=== PATIENT | female | born 1995 | race Caucasian/White ===

== ENCOUNTER → 2023-11-12 10:18 | Outpatient (REF) | payer OTHER, SELFPAY | LOC: PNTC 10:18 | PROVIDERS: ATTENDING PHYSICIAN Obstetrics & Gynecology | DX: O03.80 Unspecified complication following complete or unspecified spontaneous abortion (principal) | CPT/HCPCS: 76801 ==

== ENCOUNTER → 2023-11-23 11:12 | Outpatient (REF) | payer OTHER, SELFPAY ==
--- NOTE | 2023-11-23 17:08 | W.PN.UPDATE ---
Update Note
Progress Note Update
Pt seen by me in L&D (not registered) for Rhogam injection due to first trimester spotting. RH neg. Rhogam given IM right buttocks.
Lot #[id number] Exp 03/17/2024.
== END ==
LOC: RAD 11:12
PROVIDERS: ATTENDING PHYSICIAN Obstetrics & Gynecology
DX: O26.851 Spotting complicating pregnancy, first trimester (principal); Z34.92 Encounter for supervision of normal pregnancy, unspecified, second trimester
CPT/HCPCS: 36415; 76801; 76817; 86850; 86900; 86901; J2790

== ENCOUNTER → 2023-12-03 08:34 | Outpatient (REF) | payer OTHER, SELFPAY | LOC: PNTC 08:34 | PROVIDERS: ATTENDING PHYSICIAN Obstetrics & Gynecology | DX: Z36.0 Encounter for antenatal screening for chromosomal anomalies (principal); Z36.82 Encounter for antenatal screening for nuchal translucency | CPT/HCPCS: 76801; 76813 ==

== ENCOUNTER → 2023-12-20 10:28 | Outpatient (REF) | payer OTHER, SELFPAY | LOC: PNTC 10:28 | PROVIDERS: ATTENDING PHYSICIAN Obstetrics & Gynecology | DX: O99.210 Obesity complicating pregnancy, unspecified trimester (principal) | CPT/HCPCS: 76805 ==

== ENCOUNTER → 2024-01-22 09:35 | Outpatient (REF) | payer OTHER, SELFPAY | LOC: PNTC 09:35 | PROVIDERS: ATTENDING PHYSICIAN Obstetrics & Gynecology | DX: O99.210 Obesity complicating pregnancy, unspecified trimester (principal) | CPT/HCPCS: 76811 ==

== ENCOUNTER 2024-02-22 10:42 | Observation (INO) | payer OTHER, SELFPAY ==
[2024-02-22 10:54] VITALS: BP 101/69; BMI 32.9
== END 2024-02-22 11:20 | disposition home or self-care (01) ==
LOC: LDRP 10:42
PROVIDERS: ADMITTING PHYSICIAN Obstetrics & Gynecology; FAMILY PHYSICIAN Family Medicine
DX: O36.8120 Decreased fetal movements, second trimester, not applicable or unspecified (principal); Z3A.24 24 weeks gestation of pregnancy
CPT/HCPCS: G0378

== ENCOUNTER → 2024-03-03 10:29 | Outpatient (REF) | payer OTHER, SELFPAY | LOC: PNTC 10:29 | PROVIDERS: ATTENDING PHYSICIAN Obstetrics & Gynecology | DX: O99.320 Drug use complicating pregnancy, unspecified trimester (principal); O99.210 Obesity complicating pregnancy, unspecified trimester | CPT/HCPCS: 76816 ==

== ENCOUNTER → 2024-04-17 10:41 | Outpatient (REF) | payer OTHER, SELFPAY | LOC: PNTC 10:41 | PROVIDERS: ATTENDING PHYSICIAN Obstetrics & Gynecology | DX: O99.210 Obesity complicating pregnancy, unspecified trimester (principal); O99.320 Drug use complicating pregnancy, unspecified trimester | CPT/HCPCS: 76816 ==

== ENCOUNTER 2024-06-04 12:15 | Inpatient (IN) | payer OTHER, SELFPAY ==
[2024-06-04] MEDS: LR 1000 IV ×3 (12:15→22:37)
[2024-06-04 12:17] VITALS: BP 130/62; BMI 33.4
[2024-06-04 12:57] LABS: Hematocrit 35.1 % (37.0-47.0); Hemoglobin 12.7 g/dL (12.0-16.0); Mean Corp Hgb Conc. 36.2 g/dL (33.0-37.0); Mean Corpuscular Hgb 33.5 pg (27.0-31.0); Mean Corpuscular Volume 92.6 fL (81.0-99.0); Mean Platelet Volume 10.6 fL (7.4-10.4); Platelet Count 225 10^3/uL (130-400); Red Blood Cell Count 3.79 10^6/uL (4.20-5.40); Red Cell Dist. Width 13.2 % (11.5-14.5)
[2024-06-04] MEDS: PENICILLIN 110 UNITS IV (13:54)
[2024-06-04] MEDS: PITOCIN 30 UNITS/NSS 500 ML IV (14:57)
[2024-06-04] MEDS: PENICILLIN 55 UNITS IV ×2 (17:50→21:59)
[2024-06-04] MEDS: MORPHINE SULFATE 2 MG IV (18:37)
[2024-06-04] MEDS: PEPCID 40 MG PO (20:00)
[2024-06-04] MEDS: SUBLIMAZE 100 MCG EPIDURAL (20:14)
[2024-06-04] MEDS: FENTANYL/BUPIVACAINE 100 EPIDURAL (20:14)
[2024-06-05] MEDS: PENICILLIN 55 UNITS IV ×2 (02:00→06:48)
[2024-06-05] MEDS: FENTANYL/BUPIVACAINE 100 EPIDURAL (03:38)
[2024-06-05] MEDS: ZOFRAN 4 MG IV (04:37)
[2024-06-05] MEDS: METHERGINE INJECTION 0.2 MG IM (07:46)
[2024-06-05] MEDS: PITOCIN 30 UNITS/NSS 500 ML IV (07:47)
[2024-06-05] MEDS: PRENATAL PLUS 1 TABLET PO (09:59)
[2024-06-05] MEDS: TYLENOL 650 MG PO ×2 (09:59→21:29)
[2024-06-05] MEDS: SYNTHROID 25 MCG PO (09:59)
[2024-06-05] MEDS: SENOKOT-S 1 TABLET PO ×2 (09:59→21:29)
[2024-06-05] MEDS: MOTRIN 600 MG PO ×2 (10:00→16:11)
[2024-06-05] MEDS: TUMS EX (EXTRA STRENGTH) CHEWABLE TABLET 600 MG PO (16:11)
[2024-06-05] MEDS: PEPCID 40 MG PO (19:35)
[2024-06-06] MEDS: MOTRIN 600 MG PO ×2 (00:10→19:39)
[2024-06-06 05:38] LABS: Hemoglobin 9.6 g/dL (12.0-16.0)
[2024-06-06] MEDS: SYNTHROID 25 MCG PO (06:00)
[2024-06-06 11:33] LABS: Syphilis/T. pallidum Ab Reflex Negative (Negative)
[2024-06-06] MEDS: PRENATAL PLUS 1 TABLET PO (11:37)
[2024-06-06] MEDS: PEPCID 40 MG PO ×2 (11:38→19:39)
[2024-06-06] MEDS: SENOKOT-S 1 TABLET PO (19:58)
[2024-06-07] MEDS: MOTRIN 600 MG PO (01:35)
[2024-06-07] MEDS: SYNTHROID 25 MCG PO (06:32)
[2024-06-07] MEDS: FEOSOL 325 MG PO (08:00)
[2024-06-07] MEDS: VITAMIN C 500 MG PO (08:01)
[2024-06-07] MEDS: PRENATAL PLUS 1 TABLET PO (08:01)
[2024-06-07] MEDS: SENOKOT-S 1 TABLET PO (08:01)
== END 2024-06-07 14:18 | disposition home or self-care (01) | DRG 807 ==
LOC: LDRP 12:15
PROVIDERS: ADMITTING PHYSICIAN Obstetrics & Gynecology; ATTENDING PHYSICIAN Obstetrics & Gynecology; FAMILY PHYSICIAN Family Medicine
PROC: 6A550ZT Pheresis of Cord Blood Stem Cells, Single (ICD-10-PCS; 2024-06-05)
PROC: 10E0XZZ Delivery of Products of Conception, External Approach (ICD-10-PCS; 2024-06-05)
PROC: 0HQ9XZZ Repair Perineum Skin, External Approach (ICD-10-PCS; 2024-06-05)
DX: O42.02 Full-term premature rupture of membranes, onset of labor within 24 hours of rupture (principal); Z37.0 Single live birth; O99.824 Streptococcus B carrier state complicating childbirth; Z3A.39 39 weeks gestation of pregnancy; O99.284 Endocrine, nutritional and metabolic diseases complicating childbirth; E03.9 Hypothyroidism, unspecified; O99.344 Other mental disorders complicating childbirth; F41.9 Anxiety disorder, unspecified; O99.214 Obesity complicating childbirth; K21.9 Gastro-esophageal reflux disease without esophagitis; O76 Abnormality in fetal heart rate and rhythm complicating labor and delivery; O77.0 Labor and delivery complicated by meconium in amniotic fluid; O90.81 Anemia of the puerperium; D64.9 Anemia, unspecified
CPT/HCPCS: 36415; 85014; 85018; 85027; 86780; 86850; 86870; 86900; 86901